=== PATIENT | female | born 1945 | race Hispanic/Latino ===

== ENCOUNTER 2017-02-14 17:46 | Emergency (ER) | payer MEDICARE ==
--- NOTE | 2017-02-14 19:39 | XRay Report ---
FINAL REPORT EXAM: XR HIPS BILAT 2V W/PELVIS HISTORY: Fall TECHNIQUE: Left hip and AP pelvis PRIORS: None. FINDINGS: No fracture identified. No dislocation seen. Femoral head maintains a normal contour. Joint spaces within normal limits. Adjacent bony pelvis is unremarkable IMPRESSION: Negative hip series
[2017-02-14 20:00] LABS: Basophils % (Auto) 0.7 % (0.0-1.8); Eosinophils # (Auto) 0.2 K/mm3 (0.0-0.4); Eosinophils % (Auto) 3.2 % (0.0-4.3); Hematocrit 34.2 % (30.3-42.9); Hemoglobin 11.7 gm/dl (10.1-14.3); Lymphocytes # (Auto) 1.4 K/mm3 (1.2-5.4); Lymphocytes % (Auto) 26.4 % (13.4-35.0); Mean Corpuscular HGB Conc 34 % (30-34); Mean Corpuscular Hemoglobin 31 pg (28-32); Mean Corpuscular Volume 92 fl (79-97); Monocytes # (Auto) 0.4 K/mm3 (0.0-0.8); Monocytes % (Auto) 8.4 % (0.0-7.3); Red Blood Count 3.74 M/mm3 (3.65-5.03); Red Cell Distribution Width 15.8 % (13.2-15.2)
--- NOTE | 2017-02-14 20:07 | XRay Report ---
FINAL REPORT EXAM: XR CHEST 1V AP HISTORY: Fall TECHNIQUE: Chest two views PRIORS: None. FINDINGS: There is blunting of the left costophrenic angle consistent with a small effusion. Cardiac silhouette is within normal range for size given technique. No confluent pulmonary infiltrates are identified. The pulmonary vasculature is unremarkable. IMPRESSION: Small left pleural effusion
[2017-02-14] MEDS ORDERED: DILAUDID IM ONE (20:26)
[2017-02-14] MEDS ORDERED: ZOFRAN IM ONE (20:26)
[2017-02-14] MEDS ORDERED: DILAUDID ONE (20:32)
[2017-02-14 20:36] LABS: INR 1.51 (0.87-1.13)
[2017-02-14 20:37] LABS: Partial Thromboplastin Time 37.5 Sec. (24.2-36.6)
--- NOTE | 2017-02-14 20:37 | Emergency Department Report ---
ED Fall HPI - General Chief Complaint: Fall Stated Complaint: GROUND LEVEL FALL Time Seen by Provider: 02/14/17 18:56 Source: patient, EMS Mode of arrival: Stretcher - History of Present Illness Initial Comments: Patient states she was coming out of the bedroom when she slipped on fell. She did not pass out, and she did not hit her head. She landed on her right hip. She states she feels fine now and she has no medical complaints. MD Complaint: fall -: Sudden Fall From: standing When Fall Occurred: other (last night) Fall Witnessed: no Place Fall Occurred: [facility] Loss of Consciousness: none Prolonged Down Time?: no Symptoms Prior to Fall: none Location: pelvis Severity: mild Severity scale (0 -10): 3 Quality: sharp Context: tripped/slipped Associated Symptoms: denies - Related Data Home Medications Medication Instructions Recorded Confirmed Last Taken Keflex 250 mg/5 ml 500 mg PO QID 07/01/14 07/01/14 Unknown Methadone [Dolophine] 10 mg PO Q12H 07/01/14 07/01/14 Unknown metFORMIN [Glucophage] 500 mg PO QID 07/01/14 07/01/14 Unknown Previous Rx's Medication Instructions Recorded Last Taken Type Cephalexin [Keflex] 500 mg PO Q8HR #30 cap 02/14/17 Unknown Rx Allergies Allergy/AdvReac Type Severity Reaction Status Date / Time iodine AdvReac Hives Verified 06/30/14 22:57 ED Review of Systems ROS: Stated complaint: FOUND LEVEL FALL Other details as noted in HPI Comment: All other systems reviewed and negative Constitutional: no symptoms reported Eyes: denies: eye pain ENT: denies: ear pain Respiratory: denies: orthopnea, shortness of breath Cardiovascular: denies: chest pain, palpitations, dyspnea on exertion Endocrine: no symptoms reported Gastrointestinal: denies: abdominal pain, nausea, vomiting, diarrhea, constipation Genitourinary: denies: urgency, dysuria, frequency, hematuria Musculoskeletal: other (right hip pain). denies: back pain, myalgia Skin: denies: rash, change in color Psychiatric: depression. denies: auditory hallucinations, visual hallucinations , homicidal thoughts, suicidal thoughts Hematological/Lymphatic: denies: easy bleeding, easy bruising ED Past Medical Hx - Past Medical History Hx Diabetes: Yes Hx Liver Disease: Yes (Hep. C) Hx of Cancer: Yes (uterine cancer) Hx Arthritis: Yes Additional medical history: Currently has Uterine Cancer. uterine prolapse, cirrorsis of liver, scolosis of spine - Surgical History Hx Cholecystectomy: Yes - Social History Smoking Status: Former Smoker Substance Use Type: None - Medications Home Medications: Home Medications Medication Instructions Recorded Confirmed Last Taken Type Keflex 250 mg/5 ml 500 mg PO QID 07/01/14 07/01/14 Unknown History Methadone [Dolophine] 10 mg PO Q12H 07/01/14 07/01/14 Unknown History metFORMIN [Glucophage] 500 mg PO QID 07/01/14 07/01/14 Unknown History Cephalexin [Keflex] 500 mg PO Q8HR #30 cap 02/14/17 Unknown Rx ED Physical Exam - General Limitations: No Limitations General appearance: alert, in no apparent distress - Head Head exam: Present: atraumatic, normocephalic, normal inspection - Eye Eye exam: Present: normal appearance, PERRL, EOMI Pupils: Present: normal accommodation - ENT ENT exam: Present: normal exam, normal orophraynx - Neck Neck exam: Present: normal inspection, full ROM. Absent: tenderness - Respiratory Respiratory exam: Present: normal lung sounds bilaterally - Cardiovascular Cardiovascular Exam: Present: regular rate, normal rhythm - GI/Abdominal GI/Abdominal exam: Present: soft. Absent: tenderness, guarding, organomegaly - Extremities Exam Extremities exam: Present: normal inspection, full ROM, normal capillary refill. Absent: tenderness - Back Exam Back exam: Present: normal inspection, full ROM. Absent: tenderness, CVA tenderness (R), CVA tenderness (L), paraspinal tenderness, vertebral tenderness - Psychiatric Psychiatric exam: Present: normal affect, normal mood - Skin Skin exam: Present: warm, dry, intact, normal color ED Course Vital Signs 02/14/17 02/14/17 02/14/17 18:11 18:24 20:00 Temperature 98.3 F 98 F Pulse Rate 76 76 80 Respiratory 18 18 16 Rate Blood Pressure 167/75 Blood Pressure 167/75 144/72 [Right] O2 Sat by Pulse 966 H 96 94 Oximetry 02/14/17 20:39 Temperature Pulse Rate Respiratory 16 Rate Blood Pressure Blood Pressure [Right] O2 Sat by Pulse Oximetry ED Medical Decision Making - Lab Data Result diagrams: 02/14/17 19:41 12/31/17 21:33 - Radiology Data Radiology results: image reviewed - Medical Decision Making Urinary tract infection. Status post fall. Contusion. Critical care attestation.: If time is entered above; I have spent that time in minutes in the direct care of this critically ill patient, excluding procedure time. ED Disposition Clinical Impression: UTI (urinary tract infection) Qualifiers: Urinary tract infection type: acute cystitis Hematuria presence: with hematuria Qualified Code(s): N30.01 - Acute cystitis with hematuria Fall Qualifiers: Encounter type: initial encounter Qualified Code(s): W19.XXXA - Unspecified fall, initial encounter Contusion Qualifiers: Encounter type: initial encounter Contusion area: hip Laterality: right Qualified Code(s): S70.01XA - Contusion of right hip, initial encounter Disposition: TO HOME OR SELFCARE Is pt being admited?: No Does the pt Need Aspirin: No Condition: Stable Instructions: Urinary Tract Infection in Women (ED) Additional Instructions: Follow-up with her primary doctor on Wednesday. Return to the emergency room if your condition worsens. Prescriptions: Cephalexin [Keflex] 500 mg PO Q8HR #30 cap Referrals: PRIMARY CARE [Primary Care Provider] - 3-5 Days [facility] [Outside] - 3-5 Days [facility] [Outside] - 3-5 Days Time of Disposition: 22:40
[2017-02-14 20:58] LABS: Platelet Count 93 K/mm3 (140-440)
[2017-02-14 21:35] LABS: Bacteria,Urine 4+ /HPF (Negative); Bilirubin,Urine SM (Negative); Blood,Urine LG (Negative); Color,Urine Amber (Yellow); Hyaline Casts,Urine 5 /LPF; Mucus,Urine 2+ /HPF; Nitrite,Urine NEG (Negative)
[2017-02-14 21:41] LABS: Protein,Urine >500 mg/dL (Negative)
[2017-02-14 21:50] LABS: Ictotest,Urine Negative (Negative)
[2017-02-14] MEDS ORDERED: ROCEPHIN/NS 1 GM/50 ML 1 GM/50 ML BAG IV ONE (22:09)
[2017-02-14 22:10] LABS: Alanine Aminotransferase 16 units/L (7-56); Albumin 2.5 g/dL (3.9-5); BUN/Creatinine Ratio 14; Blood Urea Nitrogen 13 mg/dL (7-17); Calcium 8.1 mg/dL (8.4-10.2); Hemolysis Index 5
[2017-02-14] MEDS ORDERED: ROCEPHIN 1 GM in NACL 0.9% 20 ML IV ONE (22:30)
[2017-02-15 00:35] VITALS: BP 130/68
== END 2017-02-15 00:34 | disposition home or self-care (01) ==
LOC: ED 17:46
DX: S70.01XA Contusion of right hip, initial encounter (principal); N30.01 Acute cystitis with hematuria; E11.9 Type 2 diabetes mellitus without complications; M19.90 Unspecified osteoarthritis, unspecified site; Z85.42 Personal history of malignant neoplasm of other parts of uterus; Z87.891 Personal history of nicotine dependence; Z88.8 Allergy status to other drugs, medicaments and biological substances; Z90.49 Acquired absence of other specified parts of digestive tract; W01.0XXA Fall on same level from slipping, tripping and stumbling without subsequent striking against object, initial encounter; Y93.89 Activity, other specified; Y99.8 Other external cause status; Y92.89 Other specified places as the place of occurrence of the external cause
CPT/HCPCS: 36415; 71010; 73521; 80053; 81001; 85025; 85610; 85730; 96372; 96374; 99285; J0696; J1170; J2405